=== PATIENT | male | born 1935 | race Caucasian/White ===

== ENCOUNTER → 2017-04-20 | Outpatient (CLI) | payer MEDICARE ==
--- NOTE | 2017-04-20 10:24 | XR ---
EXAMINATION TYPE: XR chest 2V DATE OF EXAM: 04/20/2017 HISTORY: COUGH, HEMOPTYSIS. REFERENCE: NONE. FINDINGS: There has been a previous midline sternotomy. The heart is enlarged. There is a patchy infiltrate in the left upper lobe. The lungs are otherwise c lear. Pleural spaces are clear. IMPRESSION: 1. CARDIOMEGALY. 2. LEFT UPPER LOBE INFILTRATE.
== END | disposition home or self-care (01) ==
LOC: RADXRMAIN 09:39
PROVIDERS: ATTEND Internal Medicine
DX: R91.8 Other nonspecific abnormal finding of lung field (principal); I51.7 Cardiomegaly
CPT/HCPCS: 71020

== ENCOUNTER → 2017-05-07 | Outpatient (CLI) | payer MEDICARE ==
--- NOTE | 2017-05-07 10:17 | XR ---
EXAMINATION TYPE: XR chest 2V DATE OF EXAM: 05/07/2017 COMPARISON: NONE TECHNIQUE: PA and lateral views submitted. HISTORY: Follow up to pneumonia FINDINGS: Heart is enlarged. There is improvement in the area of left lower lobe infiltrate with near complete resolution. No pleural effusion or pneumothorax. Postoperative change and atherosclerotic change aort a. Arthropathy of the shoulders. IMPRESSION: 1. Near complete resolution of left lower lobe infiltrate. 2. Cardiomegaly.
== END | disposition home or self-care (01) ==
LOC: RADXRMAIN 10:02
PROVIDERS: ATTEND Internal Medicine
DX: I51.7 Cardiomegaly (principal)
CPT/HCPCS: 71020